=== PATIENT | female | born 1945 | race Caucasian/White ===

== ENCOUNTER 2018-01-08 18:01 | Emergency (ER) | payer MEDICARE ==
[2018-01-08 18:32] VITALS: BP 158/104
--- NOTE | 2018-01-08 19:17 | RAD ---
HISTORY: Left wrist pain after fall COMPARISONS: None relevant VIEWS: 3, Frontal, lateral, and oblique views of the left wrist FINDINGS: BONE DENSITY: There is diffuse osteopenia. BONES: There is a longitudinally oriented nondisplaced fracture of the distal radius with articular extension. 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 ALIGNMENT: There is no dislocation. SOFT TISSUES: Unremarkable. OTHER FINDINGS: None. IMPRESSION: NONDISPLACED FRACTURE OF THE DISTAL RADIUS WITH ARTICULAR EXTENSION. OSTEOPENIA.
--- NOTE | 2018-01-08 21:43 | UC ---
Mann Quiroga Gabriel, scribed for Iron Quinteros MD on 01/08/18 at 1928 . Upper Extremity HPI - HPI Summary HPI Summary: This patient is a 72 year old F presenting to [facility] accompanied by her partner s /p fall while hiking earlier today. The patient rates the pain 3/10 in severity. Patient denies numbness and tingling. Patient seems to be unhappy and refuses to give any other information that is not pertinent to her complaint. - History of Current Complaint Chief Complaint: UCUpperExtremity Stated Complaint: WRIST INJURY Time Seen by Provider: 01/08/18 18:58 Hx Obtained From: Patient Onset/Duration: Sudden Onset, Still Present Severity Initially: Mild Severity Currently: Mild Pain Intensity: 3 Pain Scale Used: 0-10 Numeric Associated Signs And Symptoms: Negative: Fever, Numbness/Tingling - Allergies/Home Medications Allergies/Adverse Reactions: Allergies Allergy/AdvReac Type Severity Reaction Status Date / Time No Known Allergies Allergy Verified 01/08/18 18:33 PMH/Surg Hx/FS Hx/Imm Hx Previously Healthy: No - Patient refused to give past medical history. - Surgical History Surgical History: Yes Surgery Procedure, Year, and Place: DOUBLE MASTECTOMIES,BLADDER,Hysterectomy, oopherectomy - Family History Known Family History: Positive: Other - Patient refused to give past medical history. - Social History Alcohol Use: None Substance Use Type: None Smoking Status (MU): Never Smoked Tobacco Review of Systems Constitutional: Negative - fever Musculoskeletal: Other: - left wrist pain All Other Systems Reviewed And Are Negative: Yes Physical Exam Triage Information Reviewed: Yes Vital Signs: Initial Vital Signs Temp 98.3 F 01/08/18 18:27 Pulse 86 01/08/18 18:27 Resp 18 01/08/18 18:27 BP 158/104 01/08/18 18:27 Pulse Ox 97 01/08/18 18:27 Vital Signs Reviewed: Yes - Additional Comments VITAL SIGNS: Reviewed. GENERAL: Patient is a well developed and nourished F who is lying comfortable in the stretcher. Patient is not in any acute respiratory distress. HEAD AND FACE: Normocephalic EYES: PERRLA, EOMI x 2. EARS: Hearing grossly intact. MOUTH: Oropharynx within normal limits. NECK: Supple, trachea is midline, no adenopathy, no JVD, no carotid bruit. CHEST: Symmetric, no tenderness at palpation LUNGS: Clear to auscultation bilaterally. No wheezing or crackles. CVS: Regular rate and rhythm, S1 and S2 present, no murmurs or gallops appreciated. ABDOMEN: Soft, non-tender. Bowel sounds are normal. No abdominal abnormal pulsations. EXTREMITIES: Full ROM in all major joints. The right wrist is tender and is swollen. There are good pulses and capillary refill. She is able to move all fingers. Neurovascular intact NEURO: Alert and oriented x 3. No acute neurological deficits. Speech is normal and follows commands. SKIN: Dry and warm Procedures - Splinting Location: right wrist Pre-Made Type: velcro Pre-Proc Neuro Vasc Exam: normal Post-Proc Neuro Vasc Exam: normal Diagnostics - Radiology wrist xray Radiology Interpretation Completed By: Radiologist - NONDISPLACED FRACTURE OF THE DISTAL RADIUS WITH ARTICULAR EXTENSION. OSTEOPENIA. Dr. Quinteros has reviewed this report. Upper Extremity Course/Dx - Course Course Of Treatment: Patient was ofered a fiberglass splint for immobilization. She declined. She requested only a wrist splint. I informed the difference between the devises. She only wanted the wrist splint. She will f/u with Dr. Barnhart which is her orthopedic doctor. Wrist Xray reveals, NONDISPLACED FRACTURE OF THE WITH ARTICULAR EXTENSION. OSTEOPENIA. I discussed all the findings and test results with the patient. Pt was instructed to return to the urgent care or go to ER immediately if any of the symptoms return or worsens. Plan of care was discussed with the patient and pt understands and agrees. All questions were answered to patient satisfaction. There were no further complaints or concerns. The patient was found to have increase BP in UC. The patient will follow up with PCP for better control of BP. - Differential Dx/Diagnosis Differential Diagnosis/HQI/PQRI: Burn, Bursitis, Fracture (Closed), Strain, Sprain Provider Diagnoses: Elevated blood pressure without history of hypertension, DISTAL RADIUS fracture Discharge - Discharge Plan Condition: Stable Disposition: HOME Patient Education Materials: Wrist Fracture in Adults (ED) Referrals: Hong Gibbs MD [Medical Doctor] - 2 Days No Primary Care Phys,NOPCP [Primary Care Provider] - Additional Instructions: Your blood pressure was elevated during todays visit; please follow up with your primary care provider within a week for further evaluation. The documentation as recorded by the Mann franco Gabriel accurately reflects the service I personally performed and the decisions made by me, Iron Quinteros MD.
== END 2018-01-08 20:15 | disposition home or self-care (01) ==
LOC: UCEAST 18:01
DX: S52.502A Unspecified fracture of the lower end of left radius, initial encounter for closed fracture (principal); M85.832 Other specified disorders of bone density and structure, left forearm; W19.XXXA Unspecified fall, initial encounter; Y93.01 Activity, walking, marching and hiking; Y92.9 Unspecified place or not applicable
CPT/HCPCS: 99211; G0463

== ENCOUNTER 2019-07-25 10:30 | Emergency (ER) | payer MEDICARE ==
[2019-07-25 10:39] VITALS: BP 154/98
--- NOTE | 2019-07-25 10:51 | UC ---
Lower Extremity/Ankle HPI - HPI Summary HPI Summary: 73-year-old female presents with complaints of left foot discomfort and swelling for the past 8 days. No known injury although patient reports she is very active and frequently runs. Describes the discomfort as a "numbness". Notes that swelling worsens throughout the day and improves overnight. Has taken ibuprofen with improvement in symptoms. Denies calf pain or swelling, bruising, or erythema. - History of Current Complaint Chief Complaint: UCLowerExtremity Stated Complaint: FOOT INJURY Time Seen by Provider: 07/25/19 10:40 Hx Obtained From: Patient Pain Intensity: 5 - Allergies/Home Medications Allergies/Adverse Reactions: Allergies Allergy/AdvReac Type Severity Reaction Status Date / Time No Known Allergies Allergy Verified 07/25/19 10:39 PMH/Surg Hx/FS Hx/Imm Hx Previously Healthy: Yes Endocrine History: Other - Diabetes insipidus - Surgical History Surgical History: Yes Surgery Procedure, Year, and Place: DOUBLE MASTECTOMIES,BLADDER,Hysterectomy, oopherectomy - Family History Known Family History: Positive: Other - Patient refused to give past medical history. - Social History Occupation: Retired Lives: With Family Alcohol Use: None Substance Use Type: None Smoking Status (MU): Never Smoked Tobacco Review of Systems All Other Systems Reviewed And Are Negative: Yes Constitutional: Negative: Fever, Chills Skin: Negative: Rash, Bruising Respiratory: Positive: Negative Cardiovascular: Positive: Negative Gastrointestinal: Positive: Negative Genitourinary: Positive: Negative Musculoskeletal: Positive: Other: - See HPI Neurological: Positive: Negative Is Patient Immunocompromised?: No Physical Exam - Summary Physical Exam Summary: GENERAL APPEARANCE: Well developed, well nourished, alert and cooperative, and appears to be in no acute distress. CARDIAC: Normal S1 and S2. No S3, S4 or murmurs. Rhythm is regular. There is no peripheral edema, cyanosis or pallor. Extremities are warm and well perfused. Capillary refill is less than 2 seconds. Peripheral pulses intact. LUNGS: Clear to auscultation without rales, rhonchi, wheezing or diminished breath sounds. ABDOMEN: Positive bowel sounds. Soft, nondistended, nontender. No guarding or rebound. No masses or hepatosplenomegally. MUSKULOSKELETAL: ROM intact to all extremities. No joint erythema or tenderness. Normal muscular development. Normal gait. EXTREMITIES: Mild tenderness of the dorsal left foot over the mid 4th metatarsal without gross deformity. Mild edema compared to the right foot. No erythema, ecchymosis, or lesions. Calf supple and non-tender. No lower extremity edema. Circulation and sensation intact. SKIN: Skin normal color, texture and turgor with no lesions or eruptions. Triage Information Reviewed: Yes Vital Signs: Initial Vital Signs Temp 98 F 07/25/19 10:35 Pulse 78 07/25/19 10:35 Resp 16 07/25/19 10:35 BP 154/98 07/25/19 10:35 Pulse Ox 100 07/25/19 10:35 Vital Signs Reviewed: Yes Diagnostics - Radiology No standard instances Radiology Interpretation Completed By: Radiologist Summary of Radiographic Findings: FINDINGS: BONE DENSITY: There is diffuse osteopenia. BONES: There is no displaced fracture. JOINTS: There is mild osteoarthritis of the first MTP joint. ALIGNMENT: There is no dislocation. SOFT TISSUES: Unremarkable. OTHER FINDINGS: None. IMPRESSION: OSTEOPENIA. NO ACUTE OSSEOUS INJURY. Lower Extremity Course/Dx - Course Course Of Treatment: 73-year-old female presents with complaints of left foot discomfort and swelling for the past 8 days. No known injury although patient reports she is very active and frequently runs. Describes the discomfort as a "numbness". Notes that swelling worsens throughout the day and improves overnight. Has taken ibuprofen with improvement in symptoms. Denies calf pain or swelling, bruising, or erythema. Afebrile. Hypertensive otherwise vital signs stable. Patient had mild tenderness of the dorsal left foot over the mid 4th metatarsal without gross deformity. Mild edema compared to the right foot. No erythema, ecchymosis, or lesions. Calf supple and non-tender. No lower extremity edema. Circulation and sensation intact. Remainder of exam unremarkable. X-ray showed no acute osseous injury. Recommending conservative treatment for acute left foot pain including OTC analgesics and RICE. She is to follow up with podiatry in 5-7 days if no improvement in symptoms. Anticipatory guidance and warning symptoms reviewed with patient. Verbalizes understanding and agrees with POC. - Differential Dx/Diagnosis Differential Diagnosis/HQI/PQRI: Arthritis, Contusion, Fracture (Closed), Sprain , Tendonitis Provider Diagnosis: Acute pain of left foot Discharge ED - Sign-Out/Discharge Documenting (check all that apply): Patient Departure All imaging exams completed and their final reports reviewed: Yes - Discharge Plan Condition: Stable Disposition: HOME Patient Education Materials: Foot Sprain (ED) Referrals: Dino Marquez MD [Primary Care Provider] - Delaney Martinez DPM [Doctor of Podiatric Medicine] - 5 Days Additional Instructions: The x-ray performed in the clinic today showed no evidence of a fracture. Rest the foot as much as possible. You may continue to walk and bear weight but should avoid strenuous activities or activities that cause pain. Apply ice to the affected area for 15-20 minutes at least 4 times a day to help with the pain and swelling. Elevate the foot to help reduce swelling. Take acetaminophen (Tylenol) or ibuprofen (Advil, Motrin) according to directions as needed for pain. Follow up with podiatry in 5-7 days if symptoms do not improve. Your blood pressure was elevated in the clinic today. It is recommended that you have this rechecked by your primary care provider within 2 weeks. Seek immediate medical attention if you have severe pain not managed with pain medication, you are unable to walk or bear any weight, or have any worsening of symptoms. - Billing Disposition and Condition Condition: STABLE Disposition: Home
== END 2019-07-25 12:06 | disposition home or self-care (01) ==
LOC: UCEAST 10:30
DX: M79.672 Pain in left foot (principal); E23.2 Diabetes insipidus
CPT/HCPCS: 99211; G0463

== ENCOUNTER 2020-08-13 16:31 | Inpatient (IN) ==
[2020-08-13] MEDS ORDERED: NS 0.9% 1000 ml BAG 1,000 ML IV ONE (17:46)
[2020-08-13 18:17] LABS: ABS Lymphocytes 1.7 10^3/ul (1.0-4.8); ABS Monocytes 0.7 10^3/ul (0-0.8); ABS Neutrophils 8.2 10^3/ul (1.5-7.7); Eosinophil % 0.1 %; Hematocrit 43 % (35-47); Hemoglobin 14.3 g/dL (12.0-16.0); Lymphocyte % 15.9 %; Mean Corpuscular HGB Conc 33 g/dL (31-36); Mean Corpuscular Hemoglobin 28 pg (27-31); Mean Corpuscular Volume 84 fL (80-97); Mean Platelet Volume 7.3 fL (7.4-10.4); Platelet Count 404 10^3/uL (150-450); Red Blood Count 5.14 10^6 /uL (3.70-4.87); Red Cell Distribution Width 14 % (10-15); White Blood Count 10.7 10^3/uL (3.5-10.8)
[2020-08-13 18:34] LABS: Albumin 4.4 g/dL (3.2-5.2); Albumin/Globulin Ratio 1.4 (1-3); BUN/Creatinine Ratio 18.8 (8-20); C Reactive Protein 7.76 mg/L (<8.01); Calcium 10.1 mg/dL (8.6-10.3); EGFR African American 79.5 (>60); EGFR Non-African American 65.7 (>60); Globulin 3.1 g/dL (2-4); Potassium 3.6 mmol/L (3.5-5.0); Total Bilirubin 1.9 mg/dL (0.2-1.0); Total Protein 7.5 g/dL (6.4-8.9)
[2020-08-13] MEDS ORDERED: Iodixanol (CONTRAST) 320 MG/ML 100 ML SDV IV ONE (19:39)
[2020-08-13] MEDS ORDERED: Ondansetron 4 mg VIAL 2 MG/ML 2 ml VIAL IV PRN (22:45)
[2020-08-14] MEDS ORDERED: Desmopressin Acetate 4 MCG/ML 1 ML SDV SUBCUT PRN ×2 (00:48→01:07)
[2020-08-14] MEDS ORDERED: Lorazepam PYXIS KEY PRN (00:52)
[2020-08-14] MEDS: Enoxaparin 40 MG/0.4 ML SYR SUBCUT SCH ×2 (01:09→23:57)
[2020-08-14] MEDS: D5W 1/2 NS KCl 20 meq 1000 ml 1,000 ML IV SCH ×2 (02:27→16:25)
[2020-08-14] MEDS: LORazepam 2 mg VIAL 1 ml IV PUSH PRN ×2 (02:27→21:35)
[2020-08-14 06:52] LABS: ABS Lymphocytes 1.7 10^3/ul (1.0-4.8); ABS Monocytes 0.8 10^3/ul (0-0.8); ABS Neutrophils 8.5 10^3/ul (1.5-7.7); Eosinophil % 0.2 %; Hematocrit 41 % (35-47); Mean Corpuscular HGB Conc 34 g/dL (31-36); Mean Corpuscular Hemoglobin 29 pg (27-31); Mean Corpuscular Volume 84 fL (80-97); Mean Platelet Volume 7.6 fL (7.4-10.4); Platelet Count 397 10^3/uL (150-450); Red Blood Count 4.91 10^6 /uL (3.70-4.87); Red Cell Distribution Width 14 % (10-15)
[2020-08-14 07:03] LABS: Calcium 9.6 mg/dL (8.6-10.3); Potassium 3.9 mmol/L (3.5-5.0)
[2020-08-14] MEDS: Levothyroxine 100 MCG/5 ML VIAL IV SCH (07:08)
[2020-08-14 07:09] LABS: BUN/Creatinine Ratio 19.5 (8-20); EGFR African American 89.2 (>60); EGFR Non-African American 73.7 (>60)
[2020-08-14 07:25] LABS: Activated Partial Thrombo Time 28.5 seconds (26.0-38.0); INR 1.14 (0.82-1.09)
[2020-08-14] MEDS: Desmopressin Acetate 4 MCG/ML 1 ML SDV SUBCUT SCH ×2 (08:59→21:17)
[2020-08-14 12:41] LABS: Total Bilirubin 1.9 mg/dL (0.2-1.0)
[2020-08-14 18:10] LABS: Urine Appearance Cloudy; Urine Bilirubin Negative (Negative); Urine Blood Negative (Negative); Urine Color Yellow; Urine Glucose Negative (Negative); Urine Ketones Trace (Negative); Urine Nitrite Negative (Negative); Urine Protein 1+(30 mg/dL) (Negative); Urine Specific Gravity 1.023 (1.010-1.030); Urine Urobilinogen Positive (Negative)
[2020-08-14 18:20] LABS: Urine Bacteria 1+ (Absent); Urine Red Blood Cell Trace(0-2/hpf) (Absent); Urine Squamous Epithelial Cell Present (Absent); Urine White Blood Cell 3+(>20/hpf) (Absent)
[2020-08-15] MEDS: D5W 1/2 NS KCl 20 meq 1000 ml 1,000 ML IV SCH (05:44)
[2020-08-15] MEDS: Levothyroxine 100 MCG/5 ML VIAL IV SCH (06:20)
[2020-08-15 06:43] LABS: ABS Eosinophils 0.1 10^3/ul (0-0.6); ABS Lymphocytes 1.4 10^3/ul (1.0-4.8); ABS Neutrophils 8.5 10^3/ul (1.5-7.7); Hematocrit 38 % (35-47); Hemoglobin 12.9 g/dL (12.0-16.0); Lymphocyte % 12.7 %; Mean Corpuscular HGB Conc 34 g/dL (31-36); Mean Corpuscular Hemoglobin 29 pg (27-31); Mean Corpuscular Volume 84 fL (80-97); Mean Platelet Volume 7.6 fL (7.4-10.4); Platelet Count 348 10^3/uL (150-450); Red Blood Count 4.52 10^6 /uL (3.70-4.87); Red Cell Distribution Width 14 % (10-15)
[2020-08-15 06:54] LABS: BUN/Creatinine Ratio 22.4 (8-20); Calcium 8.8 mg/dL (8.6-10.3); EGFR African American 90.5 (>60); EGFR Non-African American 74.8 (>60); Phosphorus 2.7 mg/dL (2.5-5.0); Potassium 3.7 mmol/L (3.5-5.0)
[2020-08-15] MEDS: Desmopressin Acetate 4 MCG/ML 1 ML SDV SUBCUT SCH (09:35)
[2020-08-15] MEDS: CMCS: Desmopressin 0.1 mg TAB (NF) PO SCH (20:57)
[2020-08-16] MEDS: Enoxaparin 40 MG/0.4 ML SYR SUBCUT SCH (00:17)
[2020-08-16 06:09] LABS: ABS Eosinophils 0.2 10^3/ul (0-0.6); ABS Lymphocytes 1.9 10^3/ul (1.0-4.8); ABS Monocytes 0.6 10^3/ul (0-0.8); ABS Neutrophils 4.8 10^3/ul (1.5-7.7); Hematocrit 38 % (35-47); Hemoglobin 12.3 g/dL (12.0-16.0); Lymphocyte % 25.1 %; Mean Corpuscular HGB Conc 33 g/dL (31-36); Mean Corpuscular Hemoglobin 28 pg (27-31); Mean Corpuscular Volume 85 fL (80-97); Mean Platelet Volume 7.1 fL (7.4-10.4); Platelet Count 334 10^3/uL (150-450); Red Blood Count 4.44 10^6 /uL (3.70-4.87); Red Cell Distribution Width 14 % (10-15); White Blood Count 7.5 10^3/uL (3.5-10.8)
[2020-08-16 06:27] LABS: BUN/Creatinine Ratio 19.4 (8-20); Calcium 8.6 mg/dL (8.6-10.3); EGFR African American 96.3 (>60); EGFR Non-African American 79.6 (>60); Potassium 3.7 mmol/L (3.5-5.0)
[2020-08-16 07:30] VITALS: BP 95/63
[2020-08-16] MEDS: CMCS: Desmopressin 0.1 mg TAB (NF) PO SCH (08:54)
== END 2020-08-16 11:13 | disposition home or self-care (01) | DRG 389 ==
LOC: ED 16:31 → SSU 23:14
PROVIDERS: ADMIT Pediatrics; ATTEND Internal Medicine